=== PATIENT | female | born 1970 | race Caucasian/White ===

== ENCOUNTER 2024-06-13 10:59 | Emergency (ER) | payer BC ==
[~2024-06-13] VITALS: Ht 154.9 cm; Wt 86.4 kg
[2024-06-13 11:34] LABS: BASOPHILS ABSOLUTE AUTO 0.04 K/mm3 (0.00-0.23); BASOPHILS PERCENT AUTO 0 % (0-2); EOSINOPHILS PERCENT AUTO 0 % (0-6); Hematocrit 31.1 % (33.0-51.0); Hemoglobin 8.7 g/dL (11.5-16.0); IMMATURE GRAN ABSOLUTE AUTO 0.07 K/mm3 (0.00-0.10); IMMATURE GRAN PERCENT AUTO 0 % (0-1); LYMPHOCYTES PERCENT AUTO 3 % (21-46); MONOCYTES ABSOLUTE AUTO 0.83 K/mm3 (0.16-1.47); MONOCYTES PERCENT AUTO 5 % (4-13); Mean Corpuscular HGB 16.8 pg (26.0-34.0); Mean Corpuscular Volume 60 fL (80-100); NEUTROPHILS ABSOLUTE AUTO 16.11 K/mm3 (1.96-9.15); NEUTROPHILS PERCENT AUTO 91 % (41-73); NRBC ABSOLUTE 0.02 K/mm3 (0.00-0.02); NRBC Auto 0.1 /100 WBC (0.0-0.2); Platelet Count 588 K/mm3 (150-400); RDW Coefficient Variation 19.9 % (11.7-14.2); RDW Standard Deviation 40.9 fL (35.1-46.3); Red Blood Cell Count 5.19 M/mm3 (3.80-5.20); White Blood Cell Count 17.65 K/mm3 (4.00-11.30)
[2024-06-13] MEDS ORDERED: FentaNYL Citrate 50 MCG/ML 2 ML Injection IV ONE (11:45)
[2024-06-13 11:55] LABS: Albumin, Blood 2.4 g/dL (3.4-5.0); Albumin/Globulin Ratio 0.6 (0.8-1.8); Bilirubin, Total 0.8 mg/dL (0.1-1.0); Bun/Creatinine Ratio 9.6 (12.0-20.0); Calcium, Blood 8.1 mg/dL (8.5-10.1); Creatinine, Blood 1.15 mg/dL (0.40-1.00); Globulin, Blood 4.3 g/dL (2.2-4.0); Potassium, Blood 3.2 mmol/L (3.5-5.5); Total Protein, Blood 6.7 g/dL (6.4-8.2)
[2024-06-13] MEDS ORDERED: Cefepime HCl 2,000 MG in NS 100 ML IV ONE (12:50)
[2024-06-13] MEDS ORDERED: MetroNIDAZOLE 500MG/NS 100 ml 100 ML IV ONE (12:55)
[2024-06-13] MEDS ORDERED: Acetaminophen 500 MG Tab PO ONE (13:05)
[2024-06-13] MEDS ORDERED: Morphine Sulfate 4 MG/1 ML Injection IV ONE ×2 (13:10→18:45)
[2024-06-13] MEDS ORDERED: NS 1,000 ML IV SCH (13:25)
[2024-06-13] MEDS ORDERED: HYDROmorphone HCl/Pf 1MG SYR IV ONE (14:45)
[2024-06-13 17:14] LABS: Source, Urine Clean Catch
[2024-06-13 17:17] LABS: Appearance, Urine Clear (Clear); Bilirubin, Urine Neg (Neg); Blood, Urine 1+ (Neg); Color, Urine Yellow (P-Yellow); Glucose Qualitative, Urine Neg (Neg); Ketones, Urine Neg (Neg); Leukocyte Esterase, Urine 2+ (Neg); Nitrite, Urine Neg (Neg); Protein, Urine 2+ (Neg); Specific Gravity, Urine 1.005 (1.003-1.022); Urobilinogen, Urine NORM (Normal)
[2024-06-13 17:18] LABS: Anti-Xa UFH, PHA Monitoring <0.10 IU/mL; International Normalized Ratio 1.16; Prothrombin Time Results 12.3 Sec (9.7-11.5)
[2024-06-13] MEDS ORDERED: Dose Adjust by Pharmacy XX STA (17:21)
[2024-06-13] MEDS ORDERED: Heparin Sodium 5000 Units/ML 1ML MDV IV ONE (17:25)
[2024-06-13] MEDS ORDERED: Heparin Sodium,Porcine/0.5 NS 500 ML IV SCH (17:25)
[2024-06-13 17:37] LABS: Granular Casts 0-2 /lpf (0)
[2024-06-13 17:40] LABS: Mucus Light (0-Heavy); Red Blood Cells, Urine 0-2 /hpf (0-2); Squamous Epithelial Cells Few /hpf (Few)
[2024-06-13 17:41] LABS: Bacteria Few /hpf
[2024-06-13] MEDS ORDERED: Ondansetron HCl 2 MG / ML 2ML Vial IV ONE (18:45)
== END 2024-06-13 21:17 | disposition other institution (70) ==
LOC: ER 10:59
PROVIDERS: Emergency Medicine; Internal Medicine Endocrinology, Diabetes & Metabolism
DX: A41.9 Sepsis, unspecified organism (principal); R65.20 Severe sepsis without septic shock; K52.89 Other specified noninfective gastroenteritis and colitis; I74.09 Other arterial embolism and thrombosis of abdominal aorta; E87.6 Hypokalemia; D50.9 Iron deficiency anemia, unspecified; R79.89 Other specified abnormal findings of blood chemistry; Z88.0 Allergy status to penicillin
CPT/HCPCS: 36415; 74177; 80053; 81001; 83605; 83690; 85025; 85520; 85610; 85730; 87040; 87086; 93005; 93010; 96365-59; 96368; 96375; 96376; 99285-25; A9270; J0692; J1171; J1644; J2270; J2405; J3010; J7030; Q9967

== ENCOUNTER → 2024-08-23 | Outpatient (CLI) | payer BC | LOC: LAB SHORT 18:10 → LAB 18:10 | PROVIDERS: Nurse Practitioner Family | DX: Z01.419 Encounter for gynecological examination (general) (routine) without abnormal findings (principal) | CPT/HCPCS: 87624; G0123 ==